=== PATIENT | male | born 1960 | race Hispanic/Latino ===

== ENCOUNTER 2019-12-03 12:10 | Outpatient (CLI) | payer OTHER ==
--- NOTE | 2019-12-03 16:11 | MRI ---
MRI CERVICAL SPINE WITHOUT CONTRAST: 12/03/19 HISTORY: Neck pain. FINDINGS: The vertebral body heights and marrow signal are maintained. There is disc desiccation throughout the cervical spine. Degenerative changes are seen by disc osteophyte formation, uncovertebral and facet hypertrophic changes at multiple levels in the cervical spine. These result in bilateral moderate neural foraminal stenosis at C3-4, bilateral severe neural foramin al stenosis at C4-5, right severe and left mild to moderate neural foraminal stenosis at C5-6 and sev ere left and moderate right neural foraminal stenosis at C6-7 levels. There is effacement of the ante rior thecal sac with impingement of the anterior spinal cord at C3-4 and C4-5 levels. The cervical spinal cord demonstrates normal, course, caliber and signal without evidence of edema, c ord atrophy, myelomalacia or syringomyelia. The paraspinal musculature is unremarkable. IMPRESSION: Cervical spondylosis with multilevel stenotic changes as discussed above. POS: [facility]
== END 2019-12-03 12:11 | disposition home or self-care (01) ==
LOC: BICMRI 12:10
PROVIDERS: ATTEND Orthopaedic Surgery
DX: M54.2 Cervicalgia (principal); M47.812 Spondylosis without myelopathy or radiculopathy, cervical region; M48.02 Spinal stenosis, cervical region
CPT/HCPCS: 72141

== ENCOUNTER 2021-01-06 09:51 | Outpatient (CLI) | payer OTHER ==
[2021-01-06 18:31] LABS: SARS-CoV-2 PCR by NAA Not Detected (NotDetected)
== END 2021-01-06 09:52 | disposition home or self-care (01) ==
LOC: LABBT 09:51
PROVIDERS: ATTEND Orthopaedic Surgery
DX: Z01.818 Encounter for other preprocedural examination (principal); Z20.822 Contact with and (suspected) exposure to COVID-19
CPT/HCPCS: 87635; 93005; 93010; U0003; U0005

== ENCOUNTER 2021-01-11 10:22 | Day surgery (SDC) | payer OTHER ==
[2021-01-10 10:05] VITALS: BMI 32.1
[2021-01-11] MEDS ORDERED: Midazolam HCl 2 mg/2 ml Vial ONE (12:19)
[2021-01-11] MEDS ORDERED: Fentanyl 100 MCG/2 ML VIAL ONE (12:27)
[2021-01-11] MEDS ORDERED: PROPOFOL 200 MG/20 ML VIAL ONE (12:39)
[2021-01-11] MEDS ORDERED: Ondansetron PF 4 MG/2 ML Vial ONE (12:39)
[2021-01-11] MEDS ORDERED: Lidocaine 1% PF 5 ML VIAL ONE (12:39)
[2021-01-11] MEDS ORDERED: Bupivacaine PF 0.5% 30 ML VIAL ONE (12:46)
[2021-01-11] MEDS ORDERED: EPINEPHrine 1 MG/ML AMP ONE (12:46)
== END 2021-01-11 15:50 | disposition home or self-care (01) ==
LOC: SDC 10:22
PROVIDERS: ATTEND Orthopaedic Surgery
PROC: 0YP90YZ Removal of Other Device from Right Lower Extremity, Open Approach (ICD-10-PCS; principal; 2021-01-11)
DX: T84.84XA Pain due to internal orthopedic prosthetic devices, implants and grafts, initial encounter (principal); Z79.899 Other long term (current) drug therapy
CPT/HCPCS: 76000; J0171; J0690; J2250; J2405; J2704; J3010; S0020

== ENCOUNTER 2022-10-04 12:18 | Emergency (ER) | payer OTHER ==
[~2022-10-04 12:18] MED LIST: Iopamidol-370 76% 500 ML 1 ML ONE
[2022-10-04 13:05] LABS: #Eosinphils 0.1 thou/uL (0.0-0.7); #Lymphocytes 2.1 thou/uL (1.20-3.40); #Monocytes 0.6 thou/uL (0.11-0.59); #Neutrophils 6.9 thou/uL (1.40-6.50); %Basophils 0.4 % (0.0-1.0); %Eosinophils 1.2 % (0.0-10.0); %Lymphocytes 21.5 % (21.0-51.0); %Monocytes 6.3 % (0.0-10.0); %Neutrophils 70.6 % (42.0-75.0); Hemoglobin 14.7 g/dL (14.0-18.0); Mean Platelet Volume 8.8 fL (7.4-10.4); Platelet Count 218 10x3/uL (130-400); RBC Distribution Width 11.9 % (11.5-14.5); Red Blood Cell (RBC) Count 4.91 mill/uL (4.70-6.10); White Blood Cell (WBC) Count 9.8 10x3/uL (4.8-10.8)
[2022-10-04 13:21] LABS: ALT (SGPT) 47 U/L (8-55); AST (SGOT) 30 U/L (5-34); Albumin 4.5 g/dL (3.4-4.8); Alkaline Phosphatase 57 U/L (40-110); Anion Gap 13 mmol/L (10-20); BUN (Urea Nitrogen) 14 mg/dL (8.4-25.7); Bilirubin, Total 0.9 mg/dL (0.2-1.2); Calc. Creatinine Clearance 0 mL/min (70-130); Calcium 9.2 mg/dL (7.8-10.44); Carbon Dioxide 25 mmol/L (23-31); Chloride 108 mmol/L (98-107); Estimated GFR 77; Globulin 3.1 g/dL (2.4-3.5); Glucose 92 mg/dL (80-115); Potassium 4.2 mmol/L (3.5-5.1); Protein, Total 7.6 g/dL (5.8-8.1); Sodium 142 mmol/L (136-145)
[2022-10-04] MEDS ORDERED: Ketorolac Tromethamine 30 MG/ML VIAL ONE (14:53)
[2022-10-04] MEDS ORDERED: Lidocaine 2% PF 5 ML VIAL ONE (15:41)
[2022-10-04] MEDS ORDERED: HYDROcodone/Acetaminophen 7.5/325 mg Tablet ONE (15:42)
== END 2022-10-04 17:00 | disposition home or self-care (01) ==
LOC: ERS 12:18
DX: L03.211 Cellulitis of face (principal); E11.9 Type 2 diabetes mellitus without complications; E78.5 Hyperlipidemia, unspecified; I10 Essential (primary) hypertension
CPT/HCPCS: 36415; 70487; 80053; 85025; 96372; J1885; J2001; Q9967

== ENCOUNTER 2023-02-22 20:57 | Inpatient (IN) | payer OTHER ==
[~2023-02-22 20:57] MED LIST changes: -Iopamidol-370 76% 500 ML 1 ML ONE; +Iopamidol-370 76% 500 ML MDV (1 ML CHARGE) ONE
[2023-02-22] MEDS ORDERED: Metoclopramide HCl 10 MG/2 ML VIAL ONE (22:00)
[2023-02-22] MEDS ORDERED: Ketorolac Tromethamine 30 MG/ML VIAL ONE (22:00)
[2023-02-22 22:22] LABS: #Basophils 0.1 thou/uL (0.0-0.2); #Eosinphils 0.1 thou/uL (0.0-0.7); #Monocytes 0.9 thou/uL (0.11-0.59); #Neutrophils 12.9 thou/uL (1.40-6.50); %Basophils 0.6 % (0.0-1.0); %Eosinophils 0.3 % (0.0-10.0); %Lymphocytes 9.9 % (21.0-51.0); %Monocytes 5.6 % (0.0-10.0); %Neutrophils 82.7 % (42.0-75.0); Hemoglobin 14.6 g/dL (14.0-18.0); Mean Corpuscular HGB CONC 34.1 g/dL (32.0-36.0); Mean Corpuscular Hemoglobin 29.3 pg (27.0-31.0); Mean Corpuscular Volume 85.8 fl (78.0-98.0); Platelet Count 191 10x3/uL (130-400); RBC Distribution Width 12.7 % (11.5-14.5); Red Blood Cell (RBC) Count 4.99 mill/uL (4.70-6.10); White Blood Cell (WBC) Count 15.6 10x3/uL (4.8-10.8)
[2023-02-22] MEDS ORDERED: Piperacillin/Tazobactam 4.5 GM VIAL ONE (22:46)
[2023-02-22 22:49] LABS: ALT (SGPT) 50 U/L (8-55); AST (SGOT) 28 U/L (5-34); Albumin 4.4 g/dL (3.4-4.8); Alkaline Phosphatase 57 U/L (40-110); Anion Gap 16 mmol/L (10-20); BUN (Urea Nitrogen) 15 mg/dL (8.4-25.7); Bilirubin, Total 0.3 mg/dL (0.2-1.2); CK (CPK) 133 U/L (30-200); Calc. Creatinine Clearance 0 mL/min (70-130); Calcium 9.4 mg/dL (7.8-10.44); Carbon Dioxide 21 mmol/L (23-31); Chloride 109 mmol/L (98-107); Estimated GFR 91; Globulin 3.4 g/dL (2.4-3.5); Glucose 121 mg/dL (80-115); Potassium 3.7 mmol/L (3.5-5.1); Protein, Total 7.8 g/dL (5.8-8.1); Sodium 142 mmol/L (136-145)
[2023-02-22 22:51] LABS: Acetaminophen Less than 10 mcg/mL (10.0-30.0); Alcohol Less than 10.0 mg/dL (Less than 10); Magnesium 2.2 mg/dL (1.6-2.6); Salicylate Less than 8.0 mg/dL (15.0-30.0)
[2023-02-22 23:09] LABS: Bacteria/HPF None Seen HPF (None Seen); Bilirubin Negative (Negative); Blood, Urine Negative (Negative); CAUTI Indications for Culture Alt mental st,lethar; Clarity Clear (Clear); Glucose, Urine (Dipstick) Normal (Negative); Ketone, Urine Negative (Negative); Leukocyte Negative Leu/uL (Negative); Nitrite Negative (Negative); Protein, Urine (Dipstick) Negative (Neg-Trace); RBC/HPF 0-3 HPF (0-3); Specific Gravity, Urine 1.017 (1.002-1.036); Squamous Epithelial None Seen HPF (0-3); Urobilinogen Normal mg/dL (Less than 2); WBC/HPF 0-3 HPF (0-3); pH, Urine 6.5 (5.0-9.0)
[2023-02-22 23:10] LABS: Urine Culture Reflex No No
[2023-02-22 23:18] LABS: Amphetamine Not Detected (NotDetected); Barbiturates Screen Not Detected (NotDetected); Benzodiazepine Screen Not Detected (NotDetected); Cocaine Metabolite Screen Not Detected (NotDetected); Methadone Not Detected (NotDetected); Methamphetamine Not Detected (NotDetected); Opiate Screen Not Detected (NotDetected); Oxycodone Screen Not Detected (NotDetected); Phencyclidine (PCP) Not Detected (NotDetected); THC/Cannabinoid Screen Not Detected (NotDetected); Tricyclic Screen Not Detected (NotDetected)
[2023-02-22] MEDS ORDERED: Calcium Carbonate 500 MG ChewTAB PO PRN (23:42)
[2023-02-22] MEDS ORDERED: Senokot S 8.6-50 MG TAB PO PRN (23:42)
[2023-02-22] MEDS ORDERED: Ondansetron ODT 4 MG TAB PO PRN (23:42)
[2023-02-23] MEDS ORDERED: Vancomycin 1 GM/200 ML (FROZEN) BAG ONE (01:11)
[2023-02-23 01:32] LABS: Lactic Acid 3.3 mmol/L (0.5-2.2)
[2023-02-23] MEDS: Acetaminophen 325 MG TAB PO PRN ×3 (04:22→20:41)
[2023-02-23 04:28] VITALS: BMI 29.6
[2023-02-23 05:40] LABS: #Basophils 0.1 thou/uL (0.0-0.2); #Monocytes 0.7 thou/uL (0.11-0.59); #Neutrophils 9.6 thou/uL (1.40-6.50); %Basophils 0.4 % (0.0-1.0); %Eosinophils 0.2 % (0.0-10.0); %Lymphocytes 12.1 % (21.0-51.0); %Monocytes 6.1 % (0.0-10.0); %Neutrophils 80.8 % (42.0-75.0); Hemoglobin 13.4 g/dL (14.0-18.0); Mean Corpuscular HGB CONC 33.8 g/dL (32.0-36.0); Mean Corpuscular Hemoglobin 29.7 pg (27.0-31.0); Mean Platelet Volume 10.7 fL (7.4-10.4); Platelet Count 202 10x3/uL (130-400); RBC Distribution Width 12.9 % (11.5-14.5); Red Blood Cell (RBC) Count 4.51 mill/uL (4.70-6.10); White Blood Cell (WBC) Count 11.9 10x3/uL (4.8-10.8)
[2023-02-23 05:58] LABS: Anion Gap 13 mmol/L (10-20); BUN (Urea Nitrogen) 11 mg/dL (8.4-25.7); Calc. Creatinine Clearance 112 mL/min (70-130); Carbon Dioxide 22 mmol/L (23-31); Chloride 107 mmol/L (98-107); Estimated GFR 98; Potassium 3.8 mmol/L (3.5-5.1); Sodium 138 mmol/L (136-145)
[2023-02-23 05:59] LABS: Calcium 8.6 mg/dL (7.8-10.44); Glucose 109 mg/dL (80-115)
[2023-02-23] MEDS: NS 0.9% w/ 20 MEQ KCL 1,000 ML/1,000 ML BAG IV SCH ×2 (08:53→21:50)
[2023-02-23] MEDS ORDERED: Famotidine 20 MG TAB PO SCH (09:00)
[2023-02-23] MEDS ORDERED: Doxycycline 100 MG CAP PO SCH ×2 (09:00)
[2023-02-23] MEDS ORDERED: cefTRIAXone\\ROCEPHIN 1 GM in Sodium Chloride 0.9% 100 ML IVPB SCH (09:00)
[2023-02-23] MEDS ORDERED: hydrALAZINE 20 MG/ML VIAL SLOW IVP PRN ×2 (15:41→17:56)
[2023-02-23] MEDS ORDERED: Aspirin 325 mg Enteric Coated Tablet PO SCH (15:45)
[2023-02-23] MEDS ORDERED: Aspirin 81 mg Enteric Coated Tablet PO SCH (18:15)
[2023-02-23] MEDS ORDERED: Acetaminophen/Codeine 30-300mg Tablet PO PRN (19:09)
[2023-02-23] MEDS ORDERED: Gabapentin 300 MG CAP PO PRN (19:09)
[2023-02-23] MEDS: Thiamine 100 MG TAB PO SCH (20:40)
[2023-02-23] MEDS: Cyanocobalamin (Vitamin B-12) 1,000 MCG TAB PO SCH (20:40)
[2023-02-23] MEDS: Folic Acid 1 MG TAB PO SCH (20:40)
[2023-02-23] MEDS: Multivit, Therapeutic 1 TAB PO SCH (20:41)
[2023-02-23] MEDS: Cholecalciferol 1,000 UNITS (25 MCG) TAB PO SCH (20:41)
[2023-02-23] MEDS: Atorvastatin Calcium 40 MG TAB PO SCH (20:49)
[2023-02-23] MEDS ORDERED: Amlodipine 5 MG TAB PO SCH (21:00)
[2023-02-23] MEDS ORDERED: Atorvastatin Calcium 10 MG TAB PO SCH ×2 (21:00)
[2023-02-23] MEDS ORDERED: Atorvastatin Calcium 40 MG TAB PO SCH (21:00)
[2023-02-23] MEDS ORDERED: Amlodipine 10 MG TAB PO SCH (21:00)
[2023-02-24 04:49] LABS: #Basophils 0.1 thou/uL (0.0-0.2); #Eosinphils 0.3 thou/uL (0.0-0.7); #Monocytes 0.8 thou/uL (0.11-0.59); #Neutrophils 6.1 thou/uL (1.40-6.50); %Basophils 0.7 % (0.0-1.0); %Eosinophils 2.6 % (0.0-10.0); %Lymphocytes 25.5 % (21.0-51.0); %Monocytes 8.1 % (0.0-10.0); %Neutrophils 62.9 % (42.0-75.0); Hemoglobin 13.6 g/dL (14.0-18.0); Mean Corpuscular HGB CONC 33.7 g/dL (32.0-36.0); Mean Platelet Volume 10.8 fL (7.4-10.4); Platelet Count 184 10x3/uL (130-400); RBC Distribution Width 13.2 % (11.5-14.5); Red Blood Cell (RBC) Count 4.54 mill/uL (4.70-6.10); White Blood Cell (WBC) Count 9.7 10x3/uL (4.8-10.8)
[2023-02-24 05:00] LABS: Hemoglobin A1c 5.6 % (4.0-6.0)
[2023-02-24 05:11] LABS: Lactic Acid 1.5 mmol/L (0.5-2.2)
[2023-02-24 05:16] LABS: Anion Gap 11 mmol/L (10-20); BUN (Urea Nitrogen) 13 mg/dL (8.4-25.7); Calc. Creatinine Clearance 90 mL/min (70-130); Calcium 8.6 mg/dL (7.8-10.44); Carbon Dioxide 25 mmol/L (23-31); Cardiac Risk 4.6 (Less than 4.5); Chloride 109 mmol/L (98-107); Cholesterol 185 mg/dl (< 200 Desired); Estimated GFR 83; Glucose 105 mg/dL (80-115); HDL Cholesterol 40 mg/dL (>60 Neg Risk); LDL Cholesterol, Calculated 98 mg/dL; Potassium 3.8 mmol/L (3.5-5.1); Sodium 141 mmol/L (136-145); Triglycerides 236 mg/dL (Less than 150)
[2023-02-24] MEDS: Clopidogrel Bisulfate 75 MG TAB PO SCH (08:32)
[2023-02-24] MEDS: Aspirin 81 mg Enteric Coated Tablet PO SCH (08:32)
[2023-02-24] MEDS: Acetaminophen 325 MG TAB PO PRN ×2 (08:35→20:01)
[2023-02-24] MEDS ORDERED: Aspirin 81 mg Enteric Coated Tablet PO SCH (09:00)
[2023-02-24] MEDS ORDERED: Ipratropium/Albuterol 3 ML NEB NEB PRN (11:36)
[2023-02-24 13:41] LABS: Troponin I Less than 0.010 ng/mL (< 0.028)
[2023-02-24] MEDS: Atorvastatin Calcium 40 MG TAB PO SCH (20:01)
[2023-02-24] MEDS: Thiamine 100 MG TAB PO SCH (20:02)
[2023-02-24] MEDS: Cholecalciferol 1,000 UNITS (25 MCG) TAB PO SCH (20:02)
[2023-02-24] MEDS: Cyanocobalamin (Vitamin B-12) 1,000 MCG TAB PO SCH (20:02)
[2023-02-24] MEDS: Multivit, Therapeutic 1 TAB PO SCH (20:02)
[2023-02-24] MEDS: Folic Acid 1 MG TAB PO SCH (20:02)
[2023-02-25 08:01] VITALS: BP 151/82; TEMP 97.8
[2023-02-25] MEDS: Clopidogrel Bisulfate 75 MG TAB PO SCH (08:02)
[2023-02-25] MEDS: Aspirin 81 mg Enteric Coated Tablet PO SCH (08:03)
== END 2023-02-25 12:06 | disposition home or self-care (01) | DRG 65 ==
LOC: ERS 20:57 → SURG A 23:57 → 2SE 02-23 19:24
PROVIDERS: ADMIT Student in an Organized Health Care Education/Training Program; ATTEND Internal Medicine
DX: I63.541 Cerebral infarction due to unspecified occlusion or stenosis of right cerebellar artery (principal); E87.20 Acidosis, unspecified; I10 Essential (primary) hypertension; E78.5 Hyperlipidemia, unspecified; R68.0 Hypothermia, not associated with low environmental temperature; G89.4 Chronic pain syndrome; D72.829 Elevated white blood cell count, unspecified; I65.21 Occlusion and stenosis of right carotid artery; Z79.899 Other long term (current) drug therapy; Z98.890 Other specified postprocedural states
CPT/HCPCS: 36415; 70450; 70544; 70547; 70551; 71045; 71275; 80048; 80053; 80061; 80306; 80307; 81001; 82550; 83036; 83605; 83735; 84484; 85025; 87040; 87086; 93005; 93010; 93306; 96361; 96365; 96367; 96375; J0696; J1885; J2543; J2765; J3370-JW; J3480; J3490; Q9967

== ENCOUNTER 2023-05-29 09:59 | Day surgery (SDC) | payer OTHER ==
[2023-05-28 12:38] VITALS: BMI 29.0
[2023-05-29] MEDS ORDERED: PROPOFOL 20 ML ONE (11:38)
[2023-05-29] MEDS ORDERED: fentaNYL 50 mcg/mL 1 mL Vial ONE (11:38)
== END 2023-05-29 13:16 | disposition home or self-care (01) ==
LOC: SDC 09:59
PROVIDERS: ATTEND Internal Medicine Cardiovascular Disease
PROC: B24BZZ4 Ultrasonography of Heart with Aorta, Transesophageal (ICD-10-PCS; principal; 2023-05-29)
DX: I10 Essential (primary) hypertension (principal); E11.9 Type 2 diabetes mellitus without complications; H91.90 Unspecified hearing loss, unspecified ear; F43.10 Post-traumatic stress disorder, unspecified; E78.5 Hyperlipidemia, unspecified; E66.9 Obesity, unspecified; Z68.29 Body mass index [BMI] 29.0-29.9, adult; Z79.82 Long term (current) use of aspirin; Z79.899 Other long term (current) drug therapy; Z86.73 Personal history of transient ischemic attack (TIA), and cerebral infarction without residual deficits
CPT/HCPCS: 93312; J2704; J3010